=== PATIENT | male | born 1975 | race African-American/Black ===

== ENCOUNTER 2019-08-24 19:41 | Emergency (ER) | payer MEDICAID ==
[~2019-08-24] VITALS: Ht 182.9 cm; Wt 95.3 kg
[2019-08-24 19:50] VITALS: BP 186/119
--- NOTE | 2019-08-24 19:50 | NUR ---
44/M PRESENTS TO ED WITH , C/O SOB AND COUGH, X2 WEEKS. REPORTS WORSENING OF SYMPTOMS TONIGHT. DENIES ANY PAIN. PT AWAKE AND ALERT, SKIN NORMAL COLOR WARM AND DRY, SPO2 94% ON RA, RR 28 EVEN AND LABORED. LUNG SOUNDS WITH BL WHEEZING INSP AND EXP. HX ASTHMA, DAILY [facility] RX ALBUTEROL INH 1 HR AGO AND NEBULIZER 30 MINS AGO WITHOUT RELIEF
--- NOTE | 2019-08-24 19:50 | NUR ---
DR WALTERS MADE AWARE OF PT STATUS, RT CALLED
[2019-08-24] MEDS ORDERED: ALBUTEROL SULFATE/IPRATROPIU 3 ML SOL IH ONE ×3 (20:15→22:15)
[2019-08-24] MEDS ORDERED: methylPREDNISolone SS 125 MG/2 ML VIAL IVP ONE (20:15)
[2019-08-24] MEDS ORDERED: MAG SULF 2000 MG/WATER PREMIX 50 ML IV ONE (20:15)
[2019-08-24] MEDS ORDERED: NACL 0.9% 1,000 ML IV ONE (20:15)
--- NOTE | 2019-08-24 21:32 | NUR ---
XR AT BEDSIDE.
--- NOTE | 2019-08-24 22:15 | NUR ---
RT AT BEDSIDE.
[2019-08-24 23:12] VITALS: BP 186/119
--- NOTE | 2019-08-24 23:12 | NUR ---
dr. loja gave discharge instructions to pt. all questions and concerns answered.
== END 2019-08-24 23:12 | disposition home or self-care (01) ==
LOC: MED 19:41
DX: J44.9 Chronic obstructive pulmonary disease, unspecified (principal)
CPT/HCPCS: 71045; 94640; 96365; 96366; 96375; 99285; J2930; J3475; J7620; Q0092

== ENCOUNTER 2022-05-27 13:14 | Emergency (ER) | payer MEDICAID ==
[~2022-05-27] VITALS: Ht 180.3 cm; Wt 101.2 kg
[~2022-05-27 13:14] MED LIST: ALBU0.0912 IH; ALBU0.0912 INH; ALLO100T21 PO; AMLO5TAB PO; ERGO-30 PO; FLUT1DSK4 IH; PRED20TA5 PO; PRON INH
[2022-05-27 13:41] VITALS: BP 168/96
--- NOTE | 2022-05-27 13:56 | NUR ---
47/M REFERRED FROM PCP OFFICE FOR ELEVATED BP OF UNK FROM CLINIC. DENIES ANY SYMPTOMS. DENIES CP OR SOB OR BLURRY VISION. BP AT TRIAGE 168/96. STATES HAS BEEN OFF BP MEDS FOR 1 MONTHS AND WENT TO CLINIC FOR REFILL. PMH: HTN, ASTHMA, COPD
[2022-05-27] MEDS ORDERED: AMLO-271 PO (14:00)
[2022-05-27] MEDS ORDERED: FLUT1BLS10 IH (14:00)
[2022-05-27 14:20] VITALS: BP 168/96
--- NOTE | 2022-05-27 14:21 | NUR ---
Patient discharged with v/s stable. Written and verbal after care instructions given and explained. Patient alert, oriented and verbalized understanding of instructions. Ambulatory with steady gait. All questions addressed prior to discharge. ID band removed. Patient advised to follow up with PMD. Rx of amlodipine, wixela (sent) given. Patient educated on indication of medication including possible reaction and side effects. Opportunity to ask questions provided and answered. rx slip given back from pcp
== END 2022-05-27 14:21 | disposition home or self-care (01) ==
LOC: MED 13:14
DX: J44.9 Chronic obstructive pulmonary disease, unspecified (principal); I10 Essential (primary) hypertension; Z76.0 Encounter for issue of repeat prescription; Z79.899 Other long term (current) drug therapy
CPT/HCPCS: 99281